=== PATIENT | female | born 2000 | race Caucasian/White ===

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

== ENCOUNTER → 2022-03-17 | Outpatient (CLI) | payer BC, OTHER | END | disposition home or self-care (01) | LOC: RAD 12:21 | PROVIDERS: ATTEND Family Medicine | DX: R05.1 Acute cough (principal); R59.0 Localized enlarged lymph nodes ==

== ENCOUNTER → 2023-10-16 | Outpatient (CLI) | payer BC, OTHER ==
[2023-10-18 20:07] LABS: TB1 Ag VALUE 0.01 IU/mL (.)
== END | disposition home or self-care (01) ==
LOC: LAB 11:17
DX: K50.819 Crohn's disease of both small and large intestine with unspecified complications (principal)